=== PATIENT | female | born 1965 | race Caucasian/White ===

== ENCOUNTER 2016-07-18 11:15 | Emergency (ER) | payer MEDICARE, OTHER | END 2016-07-18 14:28 | disposition home or self-care (01) | LOC: ER 11:15 | DX: R07.81 Pleurodynia (principal); R05 Cough; R10.11 Right upper quadrant pain; I48.91 Unspecified atrial fibrillation; Z86.718 Personal history of other venous thrombosis and embolism; F32.9 Major depressive disorder, single episode, unspecified; F17.210 Nicotine dependence, cigarettes, uncomplicated; R07.9 Chest pain, unspecified; Z79.01 Long term (current) use of anticoagulants; Z88.0 Allergy status to penicillin; Z88.6 Allergy status to analgesic agent | CPT/HCPCS: 71250; 99283; 99283-25 ==

== ENCOUNTER → 2016-09-08 | Day surgery (SDC) | payer MEDICARE, OTHER ==
[~2016-09-08] VITALS: Ht 182.9 cm; Wt 86.2 kg
== END ==
LOC: OPS 08:23
PROC: 0DBM8ZX Excision of Descending Colon, Via Natural or Artificial Opening Endoscopic, Diagnostic (ICD-10-PCS; principal; 2016-09-08)
PROC: 0DBN8ZX Excision of Sigmoid Colon, Via Natural or Artificial Opening Endoscopic, Diagnostic (ICD-10-PCS; principal; 2016-09-08)
PROC: 0DBK8ZX Excision of Ascending Colon, Via Natural or Artificial Opening Endoscopic, Diagnostic (ICD-10-PCS; principal; 2016-09-08)
DX: K52.9 Noninfective gastroenteritis and colitis, unspecified (principal); J44.9 Chronic obstructive pulmonary disease, unspecified; M19.90 Unspecified osteoarthritis, unspecified site; M19.019 Primary osteoarthritis, unspecified shoulder; I48.91 Unspecified atrial fibrillation; M54.12 Radiculopathy, cervical region; F32.9 Major depressive disorder, single episode, unspecified; E11.9 Type 2 diabetes mellitus without complications; M51.36 Other intervertebral disc degeneration, lumbar region; M50.90 Cervical disc disorder, unspecified, unspecified cervical region; K21.9 Gastro-esophageal reflux disease without esophagitis; E78.5 Hyperlipidemia, unspecified; M85.80 Other specified disorders of bone density and structure, unspecified site; E55.9 Vitamin D deficiency, unspecified; G89.29 Other chronic pain; M54.9 Dorsalgia, unspecified; Z88.1 Allergy status to other antibiotic agents; Z88.0 Allergy status to penicillin; Z88.8 Allergy status to other drugs, medicaments and biological substances; F17.210 Nicotine dependence, cigarettes, uncomplicated; Z79.01 Long term (current) use of anticoagulants; Z79.891 Long term (current) use of opiate analgesic; Z79.899 Other long term (current) drug therapy; Z86.711 Personal history of pulmonary embolism
CPT/HCPCS: 45380; 94664; 99070; J2704

== ENCOUNTER 2016-10-18 17:54 | Emergency (ER) | payer MEDICARE, OTHER | END 2016-10-18 20:37 | disposition home or self-care (01) | LOC: ER 17:54 | DX: J20.9 Acute bronchitis, unspecified (principal); Z86.718 Personal history of other venous thrombosis and embolism; F17.210 Nicotine dependence, cigarettes, uncomplicated; Z88.0 Allergy status to penicillin; Z88.6 Allergy status to analgesic agent; Z79.899 Other long term (current) drug therapy; Z79.01 Long term (current) use of anticoagulants | CPT/HCPCS: 71020; 94664; 99283-25; 99284 ==